=== PATIENT | female | born 1960 | race Caucasian/White ===

== ENCOUNTER → 2021-04-03 | Outpatient (CLI) | payer BC ==
[~2021-04-03] VITALS: Ht 160 cm; Wt 92.1 kg
== END ==
LOC: EROP 11:12
DX: U07.1 COVID-19 (principal); Z23 Encounter for immunization; I10 Essential (primary) hypertension; E11.9 Type 2 diabetes mellitus without complications
CPT/HCPCS: M0247; Q0247